=== PATIENT | male | born 1980 | race American Indian/Alaskan Native ===

== ENCOUNTER 2017-05-18 11:55 | Emergency (ER) | payer SELFPAY ==
[2017-05-18 12:05] VITALS: BP 114/69
--- NOTE | 2017-05-18 13:18 | Emergency Department Report ---
Eye Injury/Foreign Body - HPI Duration: 1 Day Eye Location: Left Severity: Mild Tetanus Status: Up to Date Eye Symptoms: Eye Pain: No, Blurred Vision: No, Eye Redness: Yes, Grinding/ Hammering Metal: No, Contact Lens Use: No, Recalls Injury: No (NO INJURY), Photophobia: No ED Review of Systems ROS: Stated complaint: LEFT EYE REDNESS Other details as noted in HPI ED Past Medical Hx - Past Medical History Previous Medical History?: No - Surgical History Past Surgical History?: No - Social History Smoking Status: Never Smoker Substance Use Type: None - Medications Home Medications: Home Medications Medication Instructions Recorded Confirmed Last Taken Type Polymyxin B Sulf/Trimethoprim 2 drop Q4H #1 drops 05/18/17 Unknown Rx [Polytrim Eye Drops] Eye Injury Exam - Exam General: Vital signs noted. No distress. Alert and acting appropriately. TO ER P WAKING THIS AM W LEFT EYE MATTED SHUT NO TRAUMA NO WELDING AROUND KIDS W PINK EYE VISION NO CHANGE NO PHOTOPHOBIA OTC MEDS NOT HELPING - Visual Acuity Left Vision Acuity Degree: 20/50 Eye Exam: Neither EOMI, Neither Mucous Discharge (THIS AM PER PT) Right Vision Acuity Degree: 20/70 Bilateral Vision Acuity Degree: 20/30 ED Course Vital Signs 05/18/17 12:02 Temperature 98.9 F Pulse Rate 79 Respiratory 18 Rate Blood Pressure 114/69 O2 Sat by Pulse 97 Oximetry ED Medical Decision Making - Medical Decision Making SEE NOTE - Differential Diagnosis CONJUNCTIVITIS Critical care attestation.: If time is entered above; I have spent that time in minutes in the direct care of this critically ill patient, excluding procedure time. ED Disposition Clinical Impression: Conjunctivitis Disposition: DC-01 TO HOME OR SELFCARE Is pt being admited?: No Does the pt Need Aspirin: No Condition: Stable Instructions: Conjunctivitis (ED) Additional Instructions: WASH HANDS WELL MED ORDERED FOLLOW UP OPTFABIANO DAWKINS IF NOT BETTER SATURDAY Referrals: KATERINA SAMPSON DO [Staff Physician] - 3-5 Days Time of Disposition: 13:36
[2017-05-18] MEDS ORDERED: TOBRADEX OU ONE (13:21)
== END 2017-05-18 14:16 | disposition home or self-care (01) ==
LOC: ED 11:55
DX: H10.9 Unspecified conjunctivitis (principal)
CPT/HCPCS: 99282